=== PATIENT | female | born 1955 | race Caucasian/White ===

== ENCOUNTER 2017-02-09 14:54 | Inpatient (IN) | payer OTHER ==
[~2017-02-09] VITALS: Ht 157.5 cm; Wt 57.1 kg
[~2017-02-09 14:54] MED LIST: ALL DAY ALLERGY10 M2 PO; AMITRIPTYLINE H50 MG PO; AMITRIPTYLINE150 MG PO; CELEXA20 MG PO; CELEXA40 MG PO; CLONAZEPAM2 MG PO; CLONIDINE HCL0.2 MG PO; Catapres PO; DEPAKOTE250 MG PO; DILAUDID4 MG PO; Desyrel PO; ELAVIL150 MG PO; Elavil PO; FIORICET WI1 CAPSULE PO; KLONOPIN1 MG PO; KlonoPIN PO; LOPRESSOR12.5 MG PO; LOPRESSOR50 MG PO; MORPHINE SULFAT15 M1 PO; MS CONTIN,ORAMO30 MG PO; Neurontin PO; SOMA250 MG PO; SOMA350 MG PO; Soma PO; TRAZODONE HCL100 MG PO; TRAZODONE HCL50 MG PO; celeXA PO; oxyCODONE PO
[2017-02-09 15:27] LABS: HEMATOCRIT 48.8 % (36.0-46.0); MCH 30.7 PG (29.0-34.0); MCV 90.4 FL (83-99); RBC DIS.WIDTH-CV 13.2 % (11.8-14.6); RBC DIS.WIDTH-SD 44.2 % (39-53); WHITE BLOOD COUNT 9.7 K/uL (4.1-10.2)
[2017-02-09 15:38] LABS: CHLORIDE 103 mEq/L (99-109); POTASSIUM 4.2 mEq/L (3.7-5.4); SODIUM 141 mEq/L (136-147)
[2017-02-09 15:40] LABS: GLUCOSE 99 mg/dL (70-99)
[2017-02-09 15:41] LABS: ANION GAP 14 MEQ/L (2-14)
[2017-02-09 15:43] LABS: SERUM ETHYL ALCOHOL < 10 mg/dL
[2017-02-09 15:44] LABS: GFR ESTIMATE (CALCULATED) > 59 mL/min/; UREA NITROGEN (BUN) 10 mg/dL (9-23)
[2017-02-09 16:42] LABS: MEAN PLAT.VOLUME 10.8 uM^3 (9.5-12.4); PLAT.SUFFICIENCY ADEQUATE; PLATELET COUNT 344 K/uL (156-360)
[2017-02-09 17:24] LABS: COCAINE NEGATIVE (150 ng/mL); METHAMPHETAMINE NEGATIVE (500 ng/mL); OPIATES (MORPHINE) PRESUMPTIVE POSITIVE (100 ng/mL); PHENCYCLIDINE NEGATIVE (25 ng/mL); THC CANNABINOIDS NEGATIVE (50 ng/mL)
[2017-02-09 17:25] LABS: ADD MEDTOX COMMENT Y; AMPHETAMINE NEGATIVE (500 ng/mL); BARBITURATES NEGATIVE (200 ng/mL); BENZODIAZEPINES NEGATIVE (150 ng/mL); INTERNAL CONTROLS VALID? YES; METHADONE NEGATIVE (200 ng/mL); OXYCODONE PRESUMPTIVE POSITIVE (100 ng/mL); PROPOXYPHENE NEGATIVE (300 ng/mL); TRICYCLIC ANTIDEPRESSANTS NEGATIVE (300 ng/mL)
[2017-02-09 20:48] VITALS: BP 129/78
[2017-02-09] MEDS ORDERED: MORPHINE SULFAT30 M2 PO (20:49)
[2017-02-09] MEDS ORDERED: CARISOPRODOL350 MG PO (20:49)
[2017-02-09] MEDS ORDERED: OXYCODONE HCL10 MG PO (20:49)
[2017-02-09] MEDS ORDERED: DESYREL100 MG PO (20:50)
[2017-02-09] MEDS ORDERED: PROMETHAZINE HC25 M1 PO (20:50)
[2017-02-09] MEDS ORDERED: COMBIVENT RESPIM4 GM IH (20:51)
[2017-02-10 07:38] VITALS: BP 108/56
[2017-02-10 11:09] VITALS: BP 135/75
[2017-02-10 15:23] VITALS: BP 129/67
[2017-02-11 07:48] VITALS: BP 106/57
[2017-02-11 15:49] VITALS: BP 103/51
[2017-02-12 07:40] VITALS: BP 99/60
[2017-02-12 15:54] VITALS: BP 109/52
[2017-02-13 09:17] VITALS: BP 95/55
[2017-02-13 15:32] VITALS: BP 96/44
[2017-02-14 08:05] VITALS: BP 117/56
[2017-02-14] MEDS ORDERED: LOPRESSOR50 MG PO (09:42)
[2017-02-14] MEDS ORDERED: LAMICTAL100 MG PO (09:42)
[2017-02-14] MEDS ORDERED: RISPERDAL2 MG PO (09:42)
== END 2017-02-14 13:13 | disposition home or self-care (01) | DRG 885 ==
LOC: EME 14:54 → EDOF 18:45 → 1WEST 18:45 → ENRESERV 20:40 → 1WEST 20:40
DX: F31.4 Bipolar disorder, current episode depressed, severe, without psychotic features (principal); G89.4 Chronic pain syndrome; F17.200 Nicotine dependence, unspecified, uncomplicated; K21.9 Gastro-esophageal reflux disease without esophagitis; R45.851 Suicidal ideations
CPT/HCPCS: 80048; 84999; 85027; 90686; 90839; 94640; 94640 76; 97150 GO; 97165 GO; 99202; 99281; 99284; G0480; Q0169; Q0177

== ENCOUNTER 2017-06-20 10:30 | Inpatient (IN) | payer OTHER ==
[~2017-06-20] VITALS: Ht 157.5 cm; Wt 59.8 kg
[~2017-06-20 10:30] MED LIST changes: +CARISOPRODOL350 MG PO; +COMBIVENT RESPIM4 GM IH; +DESYREL100 MG PO; +LAMICTAL100 MG PO; +MORPHINE SULFAT30 M2 PO; +OXYCODONE HCL10 MG PO; +PROMETHAZINE HC25 M1 PO; +RISPERDAL2 MG PO
[2017-06-20 11:53] LABS: MCH 30.9 PG (29.0-34.0); MCHC 34.1 G/DL (30.0-36.0); MCV 90.5 FL (83-99); RBC DIS.WIDTH-CV 13.4 % (11.8-14.6); RBC DIS.WIDTH-SD 44.5 % (39-53); RED BLOOD COUNT 4.86 M/uL (3.80-5.20); WHITE BLOOD COUNT 7.5 K/uL (4.1-10.2)
[2017-06-20 12:38] LABS: ACETAMINOPHEN (TYLENOL) < 10 MCG/ML (10-30); CHLORIDE 107 MEQ/L (99-109); CREATININE 0.9 MG/DL (0.6-1.3); GFR ESTIMATE (CALCULATED) > 59 mL/min/; GLUCOSE 105 mg/dL (70-99); POTASSIUM 5.1 MEQ/L (3.7-5.4); SALICYLATE < 3.0 MG/DL (15-30); SERUM ETHYL ALCOHOL < 10 mg/dL; SODIUM 140 MEQ/L (136-147); UREA NITROGEN (BUN) 12 mg/dL (9-23)
[2017-06-20 12:58] LABS: PLAT.SUFFICIENCY ADEQUATE; PLATELET COUNT 219 K/uL (156-360)
[2017-06-20 13:03] LABS: APPEARANCE CLOUDY ((CLEAR)); BILIRUBIN NEGATIVE; BLOOD SMALL; COCAINE NEGATIVE (150 ng/mL); COLOR AMBER ((YELLOW)); GLUCOSE (STRIP) NEGATIVE; KETONES 5; LEUKOCYTES LARGE; METHAMPHETAMINE NEGATIVE (500 ng/mL); NITRITE POSITIVE; OPIATES (MORPHINE) PRESUMPTIVE POSITIVE (100 ng/mL); PHENCYCLIDINE NEGATIVE (25 ng/mL); PROTEIN (STRIP) 100; SPECIFIC GRAVITY 1.021 (1.000-1.030); THC CANNABINOIDS NEGATIVE (50 ng/mL); UROBILINOGEN 0.2 MG/DL (0.2-1.0)
[2017-06-20 13:04] LABS: AMPHETAMINE NEGATIVE (500 ng/mL); BARBITURATES NEGATIVE (200 ng/mL); BENZODIAZEPINES NEGATIVE (150 ng/mL); BUPRENORPHINE NEGATIVE (10 ng/mL); METHADONE NEGATIVE (200 ng/mL); OXYCODONE NEGATIVE (100 ng/mL); PROPOXYPHENE NEGATIVE (300 ng/mL); TRICYCLIC ANTIDEPRESSANTS NEGATIVE (300 ng/mL)
[2017-06-20 13:48] LABS: EPITHELIAL CELLS 1+ /HPF; RED BLOOD CELLS 0-5 /HPF (0-5); WHITE BLOOD CELLS 15-20 /HPF (0-5)
[2017-06-20 13:49] LABS: BACTERIA 3+ /HPF; MUCUS 1+ /LPF; UCUL ADDED? YES
[2017-06-20] MEDS ORDERED: CLONIDINE HCL0.1 MG PO (15:09)
[2017-06-20] MEDS ORDERED: LAMOTRIGINE100 MG PO (15:10)
[2017-06-20 15:25] VITALS: BP 144/88
[2017-06-20] MEDS ORDERED: BUTALBITAL COM1 EAC1 PO (15:40)
[2017-06-20] MEDS ORDERED: METOPROLOL TAR100 MG PO (15:44)
[2017-06-20] MEDS ORDERED: PROVENTIL HFA6.7 GM IH (15:45)
[2017-06-20 17:18] VITALS: BP 144/88
[2017-06-20 21:38] VITALS: BP 149/74
[2017-06-21 07:35] VITALS: BP 99/58
[2017-06-21 15:14] VITALS: BP 107/55
[2017-06-22 08:11] VITALS: BP 132/58
[2017-06-22 15:36] VITALS: BP 105/58
[2017-06-23 08:02] VITALS: BP 114/66
[2017-06-23 16:13] VITALS: BP 124/60
[2017-06-23 22:07] VITALS: BP 122/55
[2017-06-24 07:40] VITALS: BP 97/60
[2017-06-24 11:59] VITALS: BP 104/53
[2017-06-24 15:40] VITALS: BP 106/53
[2017-06-25] VITALS: BP 116/77
[2017-06-25 07:28] VITALS: BP 129/66
[2017-06-25 15:23] VITALS: BP 109/58
[2017-06-26 07:26] VITALS: BP 139/62
[2017-06-26 15:31] VITALS: BP 110/67
[2017-06-27 07:41] VITALS: BP 101/63
[2017-06-27 15:48] VITALS: BP 114/57
[2017-06-28 07:22] VITALS: BP 96/46
[2017-06-28] MEDS ORDERED: LAMOTRIGINE100 MG PO (10:26)
[2017-06-28] MEDS ORDERED: AMITRIPTYLINE150 MG PO (10:26)
[2017-06-28] MEDS ORDERED: CLONIDINE HCL0.1 MG PO (10:26)
[2017-06-28] MEDS ORDERED: RISPERDAL3 MG PO (10:26)
[2017-06-28] MEDS ORDERED: METOPROLOL TAR100 MG PO (10:26)
[2017-06-28] MEDS ORDERED: DESYREL100 MG PO (10:26)
[2017-06-28] MEDS ORDERED: VISTARIL50 MG PO (10:28)
[2017-06-28] MEDS ORDERED: FIORICET 50-301 EAC1 PO (10:28)
== END 2017-06-28 13:00 | disposition home or self-care (01) | DRG 885 ==
LOC: EME 10:30 → 1WEST 13:39 → EDOF 13:39 → 1WEST 13:39 → ENRESERV 14:20 → 1WEST 16:10
PROVIDERS: Emergency Medicine
DX: F31.32 Bipolar disorder, current episode depressed, moderate (principal); F60.9 Personality disorder, unspecified; R45.851 Suicidal ideations; N39.0 Urinary tract infection, site not specified; B96.20 Unspecified Escherichia coli [E. coli] as the cause of diseases classified elsewhere; Z91.14 Patient's other noncompliance with medication regimen; Z91.19 Patient's noncompliance with other medical treatment and regimen; G43.909 Migraine, unspecified, not intractable, without status migrainosus; R41.0 Disorientation, unspecified; R26.89 Other abnormalities of gait and mobility; T39.1X5A Adverse effect of 4-Aminophenol derivatives, initial encounter; T43.595A Adverse effect of other antipsychotics and neuroleptics, initial encounter; F41.9 Anxiety disorder, unspecified; I10 Essential (primary) hypertension; J43.9 Emphysema, unspecified; I25.2 Old myocardial infarction; K21.9 Gastro-esophageal reflux disease without esophagitis; G89.29 Other chronic pain; M48.00 Spinal stenosis, site unspecified; F17.200 Nicotine dependence, unspecified, uncomplicated; Z76.5 Malingerer [conscious simulation]; Z63.5 Disruption of family by separation and divorce; Z56.0 Unemployment, unspecified
CPT/HCPCS: 80048; 81003; 84999; 85027; 87077; 87086; 87186; 90839; 94640; 94640 76; 94760; 97150 GO; 97165 GO; 99202; 99281; 99285; G0480; Q0164; Q0177